=== PATIENT | female | born 1985 | race Caucasian/White ===

== ENCOUNTER 2016-10-19 11:48 | Emergency (ER) | payer OTHER ==
[~2016-10-19] VITALS: Ht 160 cm; Wt 83.9 kg
[~2016-10-19 11:48] MED LIST: ABILIFY MAINTE400 MG IM; AMOXICILLIN875 M1 PO; CLONAZEPAM0.5 M2 PO; ESCITALOPRAM OX10 MG PO; MEDROL4 M2 PO; METHADONE H5 MG/5 M2 PO; TRAZODONE HCL100 M1 PO; VENTOLIN HFA18 GM INH
--- NOTE | 2016-10-19 13:04 | ED GENERAL ADULT ---
History of Present Illness General Chief Complaint: General Adult Stated Complaint: X3DYS/HEAD NECK BACK PAIN Source: patient, family Exam Limitations: no limitations Allergies Coded Allergies: codeine (HIVES 11/28/15) Reconcile Medications Albuterol Sulfate (Ventolin Hfa) 90 MCG HFA.AER.AD 2 PUF INH Q4-6 PRN PRN WHEEZING/SHORTNESS OF BREATH Aripiprazole (Abilify Maintena) 400 MG SUSER.SYR 400 IM Q30D MENTAL HEALTH ( Reported) Clonazepam 0.5 MG TABLET 1 TAB PO BID ANXIETY (Reported) Escitalopram Oxalate 10 MG TABLET 1 TAB PO DAILY MENTAL HEALTH (Reported) Methadone HCl 5 MG/5 ML SOLUTION 71 MG PO DAILY MENTAL HEALTH (Reported) Methadone HCl 5 MG/5 ML SOLUTION 71 MG PO DAILY PRN RECOVERY (Reported) Oxycodone HCl/Acetaminophen (Percocet 5-325 MG Tablet) 5 MG-325 MG TABLET 1 TAB PO Q6HR PRN PAIN Triage Note: C/O SEVERE NECK PAIN RADIATING TO LOW BACK WITH NAUSEA X 3 DAYS. S/P VAGINAL DELIVERY 10/16, WITH TUBAL LIGATION. STATES THE ANESTHESIOLOGIST HAD A DIFFICULT TIME INSERTING THE EPIDURAL CATHETER. PAIN WORSE LAYING DOWN. Triage Nurses Notes Reviewed? yes Onset: Gradual Duration: day(s): (3) Timing: no prior history Injury Environment: HOSPITAL Severity: moderate, severe Severity Numbers: 9 Modifying Factors: Improves With: immobilization. Worsens With: movement. : No Patient currently breastfeeds: No HPI: Patient is a 31-year-old female 3 days after vaginal delivery. She is coming into the emergency department with chief complaint of worsening low back pain over the past 3 days. Pain is achy throbbing intermittently sharp stabbing worse with any type of movement. She does report that she had an epidural which they tried 6 times before being successful. Denies any headaches. No visual changes. Denies any fevers or chills. She does report that the pain got so bad at one point over the past day or so that she had nausea and vomiting. She was just discharged from the hospital yesterday. They knew that she was having symptoms prior to discharge and they told her that everything would be okay until follow-up outpatient. Patient has been taking ibuprofen and Tylenol without relief. Denies diarrhea. Denies any urinary frequency urgency or dysuria. (AMADOR ESPOSITO) Vital Signs & Intake/Output Vital Signs & Intake/Output Vital Signs Date Time Temp Pulse Resp B/P Pulse O2 O2 Flow FiO2 Ox Delivery Rate 10/19 1852 98.3 69 18 144/78 97 Room Air 10/19 1553 97.0 80 18 140/96 98 Room Air 10/19 1216 98.4 80 18 134/90 Past History Travel History Traveled to [place] past 21 day No Medical History Any Pertinent Medical History? see below for history Neurological: NONE EENT: NONE Cardiovascular: NONE Respiratory: NONE Gastrointestinal: NONE Hepatic: NONE Renal: NONE Musculoskeletal: NONE Psychiatric: bipolar disease, opioid dependence Endocrine: NONE Blood Disorders: NONE Cancer(s): NONE SENIOR ETL DEVELOPER/Reproductive: NONE Surgical History Surgical History: N Psychosocial History Who do you live with Other (see notes) What is your primary language Bur[place]ian Tobacco Use: Never used ETOH Use: denies use Family History Hx Contributory? No (AMADOR ESPOSITO) Review of Systems Review of Systems Constitutional: Reports: no symptoms. Comments Review of systems: See HPI, All other systems negative. Constitutional, no chills fever or weight loss HEENT: No visual changes no sore throat no congestion Cardiovascular: No chest pain ,palpitation , orthopnea or ankle swelling Skin, no jaundice no rashes Respiratory: No dyspnea cough sputum or hemoptysis GI: No DIARRHEA : No dysuria No hematuria Muscle skeletal: no neck pain, Neurologic: No numbness no confusion Psych: No stress anxiety or depression,. Heme/endocrine: No bruising no bleeding no polyuria or polydipsia Immunology: No splenectomy or history of AIDS (AMADOR ESPOSITO) Physical Exam Physical Exam General Appearance: well developed/nourished, no apparent distress, alert, awake , comfortable Comments: Well-developed well-nourished person in no acute distress HEENT: Pupils equally round and reactive to light and accommodation. Nose is atraumatic. External auditory canal and Tympanic membranes clear. Pharynx normal. No swelling or edema. Neck: Supple, no lymphadenopathy, limited range of motion with lateral twisting, no meningeal signs. Back: Tender to palpation over the lumbar paraspinal muscles as well as the lumbar spine. There is an abrasion that appears to be healing over the lumbar spine that's approximately 5 mm in size. No surrounding erythema or edema. No warmth to palpation. Cardiovascular: Regular rate and rhythms no murmurs rubs or gallops, normal JVP Respiratory: Chest nontender. No respiratory distress.breath sounds clear to auscultation bilaterally Abdomen: Soft, obese, mildly tender to palpation in the periumbilical region, nondistended, no appreciable organomegaly. Normal bowel sounds. No ascites. Surgical incision appears to be healing well just below the umbilicus. Surgical incision is approximately 2 cm in length. No surrounding erythema or edema. Extremity: No edema, no calf tenderness to palpation, normal and equal pulses. Neuro: Alert oriented x3, motor sensory normal, cranial nerves II through XII grossly intact. Patellar reflexes are 2+ bilaterally. Skin: No appreciable rash on exposed skin, skin is warm and dry. Psych: Mood and affect is normal, memory and judgment is normal. Core Measures ACS in differential dx? No CVA/TIA Diagnosis: No Severe Sepsis Present: No Septic Shock Present: No (MALLY MELARA,AMADOR) Progress Differential Diagnoses I considered the following diagnoses in my evaluation of the patient: Preeclampsia, UTI, acute kidney injury, electrolyte abnormality, lumbar abscess, intra-abdominal abscess, post epidural sequelae Plan of Care: Orders Procedure Date/time Status URINALYSIS 10/19 1253 Complete COMPREHENSIVE METABOLIC PANEL 10/19 1253 Complete CBC WITHOUT DIFFERENTIAL 10/19 1253 Complete Laboratory Tests 10/19/16 1325: Urinalysis LIGHT H, Urine Color YEL, Urine Clarity CLEAR, Urine pH 6.0, Ur Specific [place] 1.015, Urine Protein 100 H, Urine Ketones NEG, Urine Nitrite NEG, Urine Bilirubin NEG, Urine Urobilinogen 0.2, Ur Leukocyte Esterase NEG, Ur Microscopic SEDIMENT EXAMINED, Urine RBC 25-50 H, Urine WBC 1-3 H, Ur Epithelial Cells FEW, Urine Mucus RARE, Urine Hemoglobin MOD H, Urine Glucose NEG 10/19/16 1310: Anion Gap 12, Estimated GFR 23 L, BUN/Creatinine Ratio 7.5, Glucose 99, Calcium 8.4, Total Bilirubin 0.3, AST 18, ALT 22, Alkaline Phosphatase 150 H, Total Protein 5.7 L, Albumin 2.8 L, Globulin 2.9, Albumin/Globulin Ratio 1.0 L, CBC w Diff NO MAN DIFF REQ, RBC 3.68 L, MCV 92.9, MCH 31.3 H, RDW 13.2, MPV 7.3 L , Gran % 79.3 H, Lymphocytes % 11.9 L, Monocytes % 6.6, Eosinophils % 2.0, Basophils % 0.2, Absolute Granulocytes 12.1 H, Absolute Lymphocytes 1.8, Absolute Monocytes 1.0 H, Absolute Eosinophils 0.3, Absolute Basophils 0, PUBS MCHC 33.6 Diagnostic Imaging: Viewed by Me: CT Scan. Discussed w/RAD: CT Scan. Radiology Impression: PATIENT: AJIT TORRES PRESENT AGE: 31 PATIENT ACCOUNT NO: [id number] : 84 LOCATION: [facility] ORDERING PHYSICIAN: AMADOR MELARA SERVICE DATE: 10/19/16 EXAM TYPE: CAT - CT 3D RECON REQ POST PROC; CT ABD & PELVIS W/O IV CONTRAS EXAMINATION: CT ABDOMEN AND PELVIS WITHOUT CONTRAST CLINICAL INFORMATION: Pain, recent tubal ligation. Status post epidural, . COMPARISON: None. TECHNIQUE: Contiguous axial thin section helical images of the abdomen and pelvis were performed without the use of contrast material. The data set was reformatted in the coronal and sagittal planes and reviewed on an independent workstation DLP: [id number] mGy-cm FINDINGS: LUNG BASES: Clear. LIVER AND SPLEEN: Unremarkable. PANCREAS GALLBLADDER AND BILIARY TREE: The gallbladder is likely filled with sludge and noncalcified calculi. There is no evidence of acute cholecystitis. The pancreas is unremarkable. The biliary tree nondilated. KIDNEYS, URETERS, AND ADRENALS: Unremarkable on this noncontrast examination. URINARY BLADDER: Unremarkable. GI TRACT: Colon is stool-filled. Small bowel is nondilated. Stomach appears unremarkable. Appendix is not identified. PERITONEAL CAVITY: No free fluid. No focal intra-abdominal fluid collection is identified to suggest an abscess at this time. RETROPERITONEUM: No aneurysm or adenopathy. PELVIC ORGANS: The uterus and adnexa are bulky in appearance. The endometrial canal contains hyperdense debris. Findings are most consistent with a status. Some retained products are possible. Clinical correlation recommended. ANTERIOR ABDOMINAL WALL AND SOFT TISSUES: There is moderate soft tissue stranding and skin thickening involving the lower abdominal wall extending up to the umbilicus. There is a small amount of air identified in the anterior abdominal wall to the right of the umbilicus possibly related to a recent port if the patient had a laparoscopic procedure. I believe a midline incision is less likely. Clinical correlation is recommended. Phlegmonous changes in the anterior abdominal wall and/or developing abscess not excluded although no focal fluid collection is seen. OSSEOUS STRUCTURES: There is a hemangioma in the L1 vertebral body on the left side. Otherwise imaging through the lumbar spine is unremarkable including the reconstructed images. No focal fluid collections are identified. No significant-appearing degenerative changes. There may be a very mild bulge in the lower two well-formed lumbar disc space levels. IMPRESSION: 1. Probable uterus. 2. Probable postoperative changes anterior abdominal wall. 3. No focal fluid collection identified to suggest an abscess in either location. 4. There is a L1 hemangioma. 5. The stool is colon-filled. Appendix is not identified. Initial ED EKG: none Comments: On arrival patient noted to stress, afebrile she does have reproducible pain in the lumbar region. Minimal pain in the periumbilical region where she had her surgery 2 days ago. Patient has CBC, CMP, urinalysis ordered. Blood pressure is normotensive at this time. 10/19/2016 5:04:52 PM patient resting comfortably after IV morphine. Percocet by mouth did not help. Blood pressure seems to be trending up slightly. We will follow. Trying to get all of her INTERNAL CONSULTANT. 10/19/2016 7:03:46 PM patient was informed of all imaging and lab results. She does have acute renal failure compared to March. BUN is only slightly increased. Patient wants to leave AGAINST MEDICAL ADVICE, form was signed. Soak with Dr. Hutson covering for INTERNAL CONSULTANT as I could not get a hold of her INTERNAL CONSULTANT or anyone economic specialist for her INTERNAL CONSULTANT. He is recommending warm compresses over the low back. She should follow-up with her INTERNAL CONSULTANT to follow her blood pressure. LFTs are normal, platelets are normal. Not concern for preeclampsia at this time. Patient was educated on signs and symptoms to return. She'll follow up with her doctor tomorrow as she is returning to the hospital to see her baby upright for Hospital. Discussed with Dr. Brennan and he agrees with plan. (AMADOR ESPOSITO) Departure Departure Time of Disposition: 1855 Disposition: LEFT AGAINST MEDICAL ADVICE Condition: Stable Clinical Impression Primary Impression: Hypertension Qualifiers: Hypertension type: essential hypertension Qualified Code: I10 - Essential (primary) hypertension Secondary Impressions: Acute kidney injury, Back pain Referrals: PATIENT HAS NO PRIMARY CARE DR (PCP/Family) Additional Instructions: Follow-up with your INTERNAL CONSULTANT for repeat renal function testing as years was 2.4 today. Increase her fluid intake. Take Percocet as prescribed for pain. Beware that Percocet can make you drowsy. Do not take it if you have to care for your baby. Warm compresses ovER YOUR low back. Departure Forms: Customer Survey General Discharge Information Prescriptions: Current Visit Scripts Oxycodone HCl/Acetaminophen (Percocet 5-325 MG Tablet) 1 TAB PO Q6HR PRN PAIN #10 TAB (AMADOR ESPOSITO) PA/ASSESSMENT NURSE Co-Sign Statement Statement: ED Attending supervision documentation- [x] I saw and evaluated the patient. I have also reviewed all the pertinent lab results and diagnostic results. I agree with the findings and the plan of care as documented in the PA's/ASSESSMENT NURSE's documentation. [] I have reviewed the ED Record and agree with the PA's/ASSESSMENT NURSE's documentation. [] Additions or exceptions (if any) to the PAs/ASSESSMENT NURSE's note and plan are summarized below: [] (LALO ARNOLD,ESVIN Jones) Critical Care Note Critical Care Note Critical Care Time: 30-74 min (AMADOR ESPOSITO) ED Attending Observation Initial Observation Note: I have seen and personally examined AJIT TORRES on 10/19/16 at 1905. I agree with the current emergency department documentation. The disposition (admission or discharge) is uncertain at this time, she needs a period of observation for the following reason(s): The ED Nurse caring for this patient has been personally informed as to what the patient is being observed for. (AMADOR ESPOSITO)
[2016-10-19 13:26] LABS: ABSOLUTE BASOPHIL COUNT 0 /CUMM (0.0-0.2); ABSOLUTE EOSINOPHIL COUNT 0.3 /CUMM (0.0-0.7); ABSOLUTE GRANULOCYTE CT 12.1 /CUMM (1.4-6.5); ABSOLUTE LYMPH COUNT 1.8 /CUMM (1.2-3.4); BASOPHIL % 0.2 % (0.0-2.0); GRANULOCYTE % 79.3 % (42.2-75.2); HEMATOCRIT 34.2 % (37-47); MEAN CORPUSCULAR HGB 31.3 PG (27.0-31.0); MEAN CORPUSCULAR HGB CONC 33.6 G/DL (33.0-37.0); MEAN CORPUSCULAR VOLUME 92.9 FL (81.0-99.0); MEAN PLATELET VOLUME 7.3 FL (7.4-10.4); PLATELET COUNT 380 /CUMM (130-400); RBC DISTRIBUTION WIDTH 13.2 % (11.5-14.5); RED BLOOD CELL CT 3.68 /CUMM (4.20-5.40); WHITE BLOOD CELL COUNT 15.2 /CUMM (4.8-10.8)
[2016-10-19] MEDS ORDERED: METHADONE H5 MG/5 M2 PO (14:22)
--- NOTE | 2016-10-19 16:26 | CT SCAN REPORT ---
EXAMINATION: CT ABDOMEN AND PELVIS WITHOUT CONTRAST CLINICAL INFORMATION: Pain, recent tubal ligation. Status post epidural, . COMPARISON: None. TECHNIQUE: Contiguous axial thin section helical images of the abdomen and pelvis were performed without the use of contrast material. The data set was reformatted in the coronal and sagittal planes and reviewed on an independent workstation DLP: [id number] mGy-cm FINDINGS: LUNG BASES: Clear. LIVER AND SPLEEN: Unremarkable. PANCREAS GALLBLADDER AND BILIARY TREE: The gallbladder is likely filled with sludge and noncalcified calculi. There is no evidence of acute cholecystitis. The pancreas is unremarkable. The biliary tree nondilated. KIDNEYS, URETERS, AND ADRENALS: Unremarkable on this noncontrast examination. URINARY BLADDER: Unremarkable. GI TRACT: Colon is stool-filled. Small bowel is nondilated. Stomach appears unremarkable. Appendix is not identified. PERITONEAL CAVITY: No free fluid. No focal intra-abdominal fluid collection is identified to suggest an abscess at this time. RETROPERITONEUM: No aneurysm or adenopathy. PELVIC ORGANS: The uterus and adnexa are bulky in appearance. The endometrial canal contains hyperdense debris. Findings are most consistent with a status. Some retained products are possible. Clinical correlation recommended. ANTERIOR ABDOMINAL WALL AND SOFT TISSUES: There is moderate soft tissue stranding and skin thickening involving the lower abdominal wall extending up to the umbilicus. There is a small amount of air identified in the anterior abdominal wall to the right of the umbilicus possibly related to a recent port if the patient had a laparoscopic procedure. I believe a midline incision is less likely. Clinical correlation is recommended. Phlegmonous changes in the anterior abdominal wall and/or developing abscess not excluded although no focal fluid collection is seen. OSSEOUS STRUCTURES: There is a hemangioma in the L1 vertebral body on the left side. Otherwise imaging through the lumbar spine is unremarkable including the reconstructed images. No focal fluid collections are identified. No significant-appearing degenerative changes. There may be a very mild bulge in the lower two well-formed lumbar disc space levels. IMPRESSION: 1. Probable uterus. 2. Probable postoperative changes anterior abdominal wall. 3. No focal fluid collection identified to suggest an abscess in either location. 4. There is a L1 hemangioma. 5. The stool is colon-filled. Appendix is not identified. Findings were discussed directly with Kerri Gandara at 1615 hours 10/19/2016
[2016-10-19 18:52] VITALS: BP 144/78
[2016-10-19] MEDS ORDERED: PERCOCET 5-3251 EACH PO (18:58)
[2017-03-06] MEDS ORDERED: METHADONE10 MG/5 M2 PO (15:40)
[2017-03-06] MEDS ORDERED: KEPPRA1000 M1 PO (15:40)
[2017-03-06] MEDS ORDERED: LABETALOL HCL200 M1 PO (15:41)
[2017-03-06] MEDS ORDERED: ALPRAZOLAM1 M2 PO (15:59)
[2017-03-06] MEDS ORDERED: TRAZODONE HCL100 M1 PO (15:59)
[2017-03-06] MEDS ORDERED: CHANTIX1 MG PO (16:02)
[2017-03-06] MEDS ORDERED: MONTELUKAST SOD10 M1 PO (16:03)
== END 2016-10-19 19:22 | disposition left against medical advice (07) ==
LOC: ERH 11:48
PROVIDERS: Physician Assistant
DX: I10 Essential (primary) hypertension (principal); N17.9 Acute kidney failure, unspecified; M54.5 Low back pain
CPT/HCPCS: 74176; 81001; 96361; 96374